=== PATIENT | male | born 1960 | race Caucasian/White ===

== ENCOUNTER 2024-05-25 18:57 | Emergency (ER) | payer OTHER ==
[~2024-05-25] VITALS: Ht 180.3 cm; Wt 104.3 kg
[2024-05-25] MEDS ORDERED: OXYCODONE/APAP 5-325 MG TABLET ONE (19:35)
[2024-05-25] MEDS: OXYCODONE/APAP 5-325 MG TABLET PO ONE (19:37)
[2024-05-25] MEDS ORDERED: OXYC-133 PO (19:50)
[2024-05-25 19:57] VITALS: BP 145/65; TEMP 98
== END 2024-05-25 19:58 | disposition home or self-care (01) ==
LOC: ER 18:58
DX: M70.31 Other bursitis of elbow, right elbow (principal)
CPT/HCPCS: A4606; A4663

== ENCOUNTER 2024-09-24 12:59 | Emergency (ER) | payer MEDICAID ==
[~2024-09-24] VITALS: Ht 177.8 cm; Wt 113.4 kg
[~2024-09-24 12:59] MED LIST: AZIT250T PO; GABA100C PO; OXYC-133 PO
[2024-09-24] MEDS: IV NORMAL SALINE 1000 ML BAG IV ONE (14:07)
[2024-09-24] MEDS ORDERED: ONDANSETRON 4 MG/2 ML VIAL ONE (14:07)
[2024-09-24] MEDS ORDERED: DEXAMETHASONE SOD PHOSPHATE 10 MG INJ ONE (14:07)
[2024-09-24] MEDS ORDERED: MORPHINE SULFATE 4 MG/1 ML DISP.SYRIN ONE (14:07)
[2024-09-24] MEDS: ONDANSETRON 4 MG/2 ML VIAL IV ONE (14:07)
[2024-09-24] MEDS: DEXAMETHASONE SOD PHOSPHATE 4 MG INJ IV ONE (14:09)
[2024-09-24] MEDS: MORPHINE SULFATE 4 MG/1 ML DISP.SYRIN IV ONE (14:11)
[2024-09-24 14:30] LABS: PLATELET COUNT (AUTO) 259 K/uL (152-348); RED BLOOD CELL COUNT(AUTO) 4.41 MIL/uL (4.06-5.63); RED CELL DISTRIBUTION WIDTH 13.4 % (12.1-16.2); WHITE BLOOD COUNT (AUTO) 7.5 K/uL (3.6-10.2)
[2024-09-24 14:37] LABS: CREATININE 0.7 mg/dL (0.6-1.3); SODIUM SERUM 137.0 mmol/L (136-145); UREA NITROGEN, BLOOD 12.0 mg/dL (7-18)
[2024-09-24 14:43] LABS: ASPARTATE AMINOTRANSFERASE 30.0 U/L (15-37); TOTAL PROTEIN, SERUM 6.9 g/dL (6.4-8.2)
[2024-09-24] MEDS: CEFTRIAXONE 1 G in IV DEXTROSE 5% 50 ML IV ONE (15:34)
[2024-09-24] MEDS ORDERED: AZITHROMYCIN 500MG/ D5W 250ML IVPB **ER PYXIS ONLY IV ONE (15:34)
[2024-09-24] MEDS ORDERED: CEFTRIAXONE /D5W 50ML IVPB **ER PYXIS IV ONE (15:34)
[2024-09-24] MEDS: AZITHROMYCIN IV 500 MG in IV DEXTROSE 5% 250 ML IV ONE (15:43)
[2024-09-24 17:43] VITALS: BP 136/80
[2024-09-24] MEDS ORDERED: METH4TAB3 PO (17:45)
[2024-09-24] MEDS ORDERED: CYCL5TAB PO (17:45)
[2024-09-24] MEDS ORDERED: LIDO30AD10 TP (17:45)
[2024-09-24] MEDS ORDERED: AMOX-430 PO (17:45)
[2024-09-24 17:54] VITALS: BP 157/96; O2SAT 95
== END 2024-09-24 18:00 | disposition home or self-care (01) ==
LOC: ER 12:59
DX: J18.9 Pneumonia, unspecified organism (principal); G89.29 Other chronic pain; R05.9 Cough, unspecified; R09.81 Nasal congestion; M47.22 Other spondylosis with radiculopathy, cervical region; R06.02 Shortness of breath; Z79.899 Other long term (current) drug therapy; Z87.11 Personal history of peptic ulcer disease; Z98.1 Arthrodesis status; Z87.19 Personal history of other diseases of the digestive system; Z87.39 Personal history of other diseases of the musculoskeletal system and connective tissue
CPT/HCPCS: 99285; 96365; 96375; 72125; 71045; 96361; 96366; 80076; 80048; 83735; 85025; 84145; 85730; 87040 ×2; 36415; 93005; 96368; 83605; J0456; J0696; J1100; J2405; J2270; J7040; A4606; A4663

== ENCOUNTER 2024-11-21 13:22 | Emergency (ER) | payer MEDICAID ==
[~2024-11-21] VITALS: Ht 177.8 cm; Wt 113.4 kg
[~2024-11-21 13:22] MED LIST changes: +AMOX-430 PO; +CYCL5TAB PO; +LIDO30AD10 TP; +METH4TAB3 PO
[2024-11-21 13:54] LABS: PLATELET COUNT (AUTO) 278 K/uL (152-348); RED BLOOD CELL COUNT(AUTO) 4.85 MIL/uL (4.06-5.63); RED CELL DISTRIBUTION WIDTH 12.6 % (12.1-16.2); WHITE BLOOD COUNT (AUTO) 8.0 K/uL (3.6-10.2)
[2024-11-21] MEDS ORDERED: KETOROLAC TROMETHAMINE 30 MG INJ ONE (13:54)
[2024-11-21] MEDS ORDERED: HYDROMORPHONE 1 MG/1 ML DISP.SYRIN ONE ×2 (13:54→17:51)
[2024-11-21] MEDS ORDERED: ONDANSETRON 4 MG/2 ML VIAL ONE (13:54)
[2024-11-21] MEDS: ONDANSETRON 4 MG/2 ML VIAL IV ONE (14:03)
[2024-11-21] MEDS: KETOROLAC TROMETHAMINE 30 MG INJ IVP ONE (14:03)
[2024-11-21] MEDS: HYDROMORPHONE 1 MG/1 ML DISP.SYRIN IV ONE ×2 (14:03→17:54)
[2024-11-21 14:07] LABS: CREATININE 0.9 mg/dL (0.6-1.3); SODIUM SERUM 140.0 mmol/L (136-145); UREA NITROGEN, BLOOD 26.0 mg/dL (7-18)
[2024-11-21 14:52] LABS: *BILIRUBIN,URIN NEGATIVE (NEGATIVE); *BLOOD, URINE NEGATIVE (NEGATIVE); *CLARITY,URINE CLEAR (CLEAR); *COLOR,URINE YELLOW (YELLOW); *KETONES,URINE TRACE (NEGATIVE); *PROTEIN,URINE TRACE (NEGATIVE); *UROBILINOGEN,URINE 0.2 E.U./dl (NORMAL); LEUKOCYTE ESTERASE ,URINE NEGATIVE (NEGATIVE); NITRITE, URINE NEGATIVE (NEGATIVE); UGLUCOSE NEGATIVE (NEGATIVE)
[2024-11-21 15:15] LABS: SQUAMOUS EPITHELIAL CELL,UR FEW /HPF (NONE SEEN)
[2024-11-22 01:00] VITALS: BP 169/79
[2024-11-22 02:44] VITALS: BP 169/79; O2SAT 95
== END 2024-11-22 01:15 | disposition left against medical advice (07) ==
LOC: ER 13:22
DX: M54.9 Dorsalgia, unspecified (principal); M79.604 Pain in right leg; K76.0 Fatty (change of) liver, not elsewhere classified; G89.29 Other chronic pain; M41.9 Scoliosis, unspecified; Z87.11 Personal history of peptic ulcer disease; Z79.899 Other long term (current) drug therapy; Z87.01 Personal history of pneumonia (recurrent)
CPT/HCPCS: 99285; 96374; 72131; 96375; 80048; 81001; 83735; 85025; 36415; 96376; J1885; J2405; J1171 ×2; A4606; A4663